=== PATIENT | female | born 1935 | race Caucasian/White ===

== ENCOUNTER → 2016-08-31 | Outpatient (CLI) | payer OTHER ==
[~2016-08-31] MED LIST: CALCIUM 500 MG1 EACH PO; CARDIZEM CD,CA240 MG PO; CYMBALTA60 MG PO; FOLIC ACID1 MG PO; GLIMEPIRIDE4 MG PO; LISINOPRIL40 MG PO; MAGNESIUM400 M1 PO; METAMUCIL0.52 GM PO; METFORMIN HCL500 M4 PO; METHOTREXATE2.5 MG PO; NEXIUM20 MG PO; OCUVITE TABLET1 EACH PO; ZYRTEC10 M2 PO
== END | disposition home or self-care (01) ==
LOC: RAD 09:30
DX: K57.30 Diverticulosis of large intestine without perforation or abscess without bleeding (principal); K59.00 Constipation, unspecified; R91.8 Other nonspecific abnormal finding of lung field
CPT/HCPCS: 74176